=== PATIENT | female | born 1935 | race Asian ===

== ENCOUNTER 2016-05-25 12:29 | Day surgery (SDC) | payer OTHER ==
[2016-05-17 14:52] VITALS: BMI 27.2
--- NOTE | 2016-05-24 09:18 | HP ---
[facility]ellite [facility] - Chief Complaint Chief Complaint: right knee pain - Past Medical History Allergies/Adverse Reactions: Allergies Allergy/AdvReac Type Severity Reaction Status Date / Time No Known Drug Allergies Allergy Verified 05/17/16 14:23 - Current Medications Current Medications: Home Medications Medication Instructions Recorded Acetaminophen [Tylenol -] 1,000 mg PO HS PRN 05/17/16 Telmisartan/Amlodipine 1 each PO DAILY 05/17/16 [Telmisartan-Amlodipine 40-5 mg] Satellite Physical Exam - Physical Examination General Appearance: Well Nourished, Well Developed, Alert & Oriented x3 ENT: Clear Lung: Normal air movement Heart: Regular rate & rhythm Extremities: Other (right knee- + swelling, + ttp medially, decr rom, nvi xrays show severe medial djd) Neurological: Intact, Alert, Oriented Satellite Impression/Plan - Impression/Plan Impression: right knee medial djd Operative Procedure: right medial anna ukr Date to be Performed: 05/25/16
[2016-05-25] MEDS ORDERED: TRANEXAMIC ACID 1000 MG/10 ML VIAL IVPUSH ONE (12:49)
[2016-05-25] MEDS ORDERED: ROPIVICAINE 0.2%/MORPH PF/KETOROLAC - 51ML DISP.SYRINGE IA ONE (12:49)
[2016-05-25] MEDS ORDERED: CEFAZOLIN 1 GM/D5W 50 ML IVPB ONE (12:49)
[2016-05-25] MEDS: GABAPENTIN 300 MG CAPSULE (FP) PO ONE ×2 (13:15→17:39)
[2016-05-25] MEDS: CELECOXIB 200 MG CAPSULE PO ONE ×2 (13:15→17:39)
[2016-05-25] MEDS ORDERED: MIDAZOLAM HCL 2 MG/2 ML SINGLE DOSE VIAL ONE (14:13)
[2016-05-25] MEDS ORDERED: ROPIVACAINE HCL 0.5% 30ML VIAL ONE (14:13)
[2016-05-25] MEDS ORDERED: TRANEXAMIC ACID 1000 MG/10 ML VIAL ONE (15:10)
[2016-05-25] MEDS ORDERED: ceFAZolin SODIUM 1 GM VIAL ONE (15:10)
[2016-05-25] MEDS ORDERED: LIDOCAINE HCL/PF 2% SDV 5ML VIAL ONE (15:10)
[2016-05-25] MEDS ORDERED: PROPOFOL 20 ML ONE (16:06)
--- NOTE | 2016-05-25 16:21 | OP ---
Operative Note - Note: Operative Date: 05/25/16 Pre-Operative Diagnosis: right knee OA Operation: right knee medial Makoplasty, partial knee replacement, with Navigation Implants: Brian Femur 3, Tibia 3, Poly implant 9mm Surgeon: Aguila Bond Beverage Host: Garcia Hwang Anesthesiologist/DRYING ROOM SUPERVISOR: Jo Gao Anesthesia: General, Local Specimens Removed: bone Estimated Blood Loss (mls): 25 Blood Volume Replaced (mls): 0 Fluid Volume Replaced (mls): 700 Operative Report Dictated: Yes
[2016-05-25] MEDS ORDERED: ONDANSETRON 4 MG/2 ML VIAL IVPB PRN (16:31)
[2016-05-25] MEDS ORDERED: MAG HYDROX/AL HYDROX/SIMETH 30 ML UNIT-DOSE CUP PO PRN (16:31)
[2016-05-25] MEDS ORDERED: oxyCODONE HCL 5 MG TABLET PO PRN ×2 (16:40)
[2016-05-25] MEDS ORDERED: ONDANSETRON 4 MG/2 ML VIAL IVPUSH PRN (16:42)
[2016-05-25] MEDS ORDERED: LACTATED RINGERS SOLUTION 1,000 ML IV SCH (16:45)
[2016-05-25] MEDS: ACETAMINOPHEN 1000 MG/100 ML VIAL (NON FORMULARY) IVPB ONE ×2 (16:50→17:39)
[2016-05-25] MEDS ORDERED: ONDANSETRON 4 MG/2 ML VIAL ONE (17:19)
[2016-05-25] MEDS ORDERED: PROMETHAZINE HCL 25 MG/1 ML VIAL ONE (17:22)
[2016-05-25] MEDS ORDERED: PROMETHAZINE HCL 25 MG/1 ML VIAL IVPUSH ONE (19:00)
[2016-05-25] MEDS: CEFAZOLIN 1 GM/D5W 50 ML IVPB SCH (21:33)
[2016-05-25] MEDS: GABAPENTIN 300 MG CAPSULE (FP) PO SCH (21:33)
[2016-05-25] MEDS: oxyCODONE HCL 10 MG SUSTAINED ACTING TABLET PO SCH (21:34)
[2016-05-25] MEDS: SENNOSIDES/DOCUSATE COMBO (SENNA PLUS) TABLET (UD) PO SCH (21:35)
[2016-05-25 22:50] VITALS: TEMP 98.5
[2016-05-25] MEDS: ACETAMINOPHEN 325 MG TABLET (FP) PO SCH (23:05)
[2016-05-26] MEDS: ACETAMINOPHEN 325 MG TABLET (FP) PO SCH (04:23)
[2016-05-26] MEDS: CEFAZOLIN 1 GM/D5W 50 ML IVPB SCH (06:07)
[2016-05-26 06:23] VITALS: BP 102/46; PULSE 57
[2016-05-26] MEDS ORDERED: ASPIRIN 325 MG TABLET PO SCH (08:00)
--- NOTE | 2016-05-26 08:00 | PN ---
Progress Note (short form) - Note Progress Note: Ortho Pt seen and examined s/p right medial anna ukr pod #1 Selected Entries 05/26/16 06:00 Temperature 98.5 F Pulse Rate 57 L Respiratory 16 Rate Blood Pressure 102/46 dressing slight saturation proximally, not to borders, calf soft, nt rom 0-100, nvi a/p PT dvt ppx pain control d/c home today f/u in 1 week
--- NOTE | 2016-05-26 08:01 | DS ---
Physical Examination Vital Signs: Vital Signs Temperature 98.5 F 05/26/16 06:00 Pulse Rate 57 L 05/26/16 06:00 Respiratory Rate 16 05/26/16 06:00 Blood Pressure 102/46 05/26/16 06:00 O2 Sat by Pulse Oximetry (%) 93 L 05/26/16 06:22 Discharge Summary Reason For Visit: OSTEOARTHRITIS Procedures: Principal: s/p right medial anna ukr Hospital Course: admitted for elective right medial anna ukr, uneventful post-op, stable for d/c Condition: Good - Instructions Diet, Activity, Other Instructions: Post-op Instructions-Partial Knee Replacement Call the office for a follow-up appointment in 1 week - [phone] Aspirin 325mg daily for 6 weeks. Pain medication was sent into your pharmacy. Apply Graduated Compression Stockings (TEDs) to both lower extremities- remove daily for hygiene ONLY Apply Sequential Compression Device (SCDs) to both Lower extremities remove for PT and hygiene ONLY Apply cold packs to affected area for 15 minutes every 2 hours. Physical Therapist will come to your home for the first 5 days. You will be set up with outpatient PT at your first post-operative visit. Patient may ambulate as tolerated-encourage self care (at least every 2-3 hours while awake) with walker or cane Maintain Aquacel (waterproof) dressing to operative wound (will be removed by surgeon at first office visit) Shower with Aquacel dressing in place-if Aquacel integrity compromised, remove and apply dry sterile dressing and notify Orthopedist. DO NOT SHOWER unless Orthopedists approves without Aquacel dressing CONTACT THE OFFICE FOR ANY CHANGE IN YOUR CONDITION (for example-fever greater than 102 degrees,excessive bleeding from operative site, purulent drainage, severe swelling or pain) GO TO THE EMERGENCY ROOM IF THERE IS A MEDICAL EMERGENCY Knee Precautions: * Keep a rolled towel under affected heel while in bed or chair (to keep knee in extension) * Keep affected leg elevated except during mealtimes * DO NOT PLACE PILLOW UNDER AFFECTED KNEE * If you have any questions, please do not hesitate to call the office - . Referrals: Aguila Bond MD [Staff Physician] - Disposition: VNS/HOME HEALTH CARE - Home Medications Comprehensive Discharge Medication List: Ambulatory Orders Acetaminophen [Tylenol .Extra-Strength -] 1,000 mg PO HS PRN 05/17/16 Telmisartan/Amlodipine [Telmisartan-Amlodipine 40-5 mg] 1 each PO DAILY Aspirin [ASA -] 325 mg PO DAILY@0800 tablet 05/25/16 Oxycodone HCl/Acetaminophen [Percocet 5-325 mg Tablet -] 1 - 2 tab PO Q6H #50 tab MDD 8 05/25/16
[2016-05-26] MEDS: SENNOSIDES/DOCUSATE COMBO (SENNA PLUS) TABLET (UD) PO SCH (09:07)
[2016-05-26] MEDS: GABAPENTIN 300 MG CAPSULE (FP) PO SCH (09:08)
[2016-05-26] MEDS: oxyCODONE HCL 10 MG SUSTAINED ACTING TABLET PO SCH (09:08)
[2016-05-26] MEDS ORDERED: amLODIPine BESYLATE 5 MG TABLET (FP) PO SCH (10:00)
[2016-05-26] MEDS ORDERED: PANTOPRAZOLE 40 MG TABLET (FP) PO SCH (10:00)
[2016-05-26] MEDS ORDERED: VALSARTAN 160 MG TABLET (UD) PO SCH (10:00)
[2016-05-26] MEDS ORDERED: TELMISARTAN PO SCH (10:00)
[2016-05-26] MEDS ORDERED: AMLODIPINE PO SCH (10:00)
[2016-05-26] MEDS ORDERED: MULTIVITAMINS (DAILY MVI) TABLET (FP) PO SCH (10:00)
[2016-05-26] MEDS ORDERED: [UNRECOGNIZED DRUG - OTHER] PO SCH (10:00)
--- NOTE | 2016-05-27 13:28 | SPEC ---
DATE OF OPERATION: 05/25/2016 PREOPERATIVE DIAGNOSIS: Right knee medial compartment osteoarthritis. POSTOPERATIVE DIAGNOSIS: Right knee medial compartment osteoarthritis. PROCEDURE: Right knee medial MAKOplasty/partial knee replacement. SURGEON: Cedric Bruno MD SLEEP TECH: JOSÉ ANTONIO Wayne METHODS TIME ANALYST: Jo Gao CRNA ANESTHESIOLOGIST: Mtaeusz Dover MD, overseeing. ANESTHESIA: Spinal anesthesia. DRAINS: None. COMPLICATIONS: None. SPECIMENS: Bone. IMPLANTS: ABBI femoral component No. 3, tibial component No. 3, and tibial polyethylene tray 9 mm. BLOOD LOSS: 25 mL. BLOOD GIVEN: None. FLUID REPLACEMENT: 700 mL. DESCRIPTION OF PROCEDURE: The patient is 80-year-old female with preoperative diagnosis of severely painful and debilitating right knee medial compartment osteoarthritis. After understanding the potential risks, complications, alternatives and benefits of surgery versus nonsurgical treatment, the patient elected to undergo this procedure. The patient was brought to the operating room, peripheral IV placed, IV sedation given. One gram of IV Ancef was given. Regional blocks were performed. LMA anesthesia was induced. The right lower extremity was prepped and draped in a sterile fashion. Case was begun by making a medial incision about 4-inch in length. Subcutaneous hemostasis was achieved with the Bovie cautery. Dissection done down to the patella, the patella reticulum and medial patella retinacular incision was made with a Bovie cautery. Arthrotomy was performed. The proximal medial femur and the proximal medial tibial plateau were exposed. The femoral and tibial check points were placed one handbreadth above the patella and 2-inch more than one handbreadth below the patella. I put in four Elvira pins in the femoral and tibial arrays. We then used the Green probe to calibrate the medial malleolus and lateral malleolus, the femoral and tibial check points and then put the knee through a circular range of motion. Once this was done a Weitlaner retractor was placed into the incision, retracting the patella laterally and using the Blue check point we used 40 points of calibration on the femur and 40 points of calibration on the tibia. Once this was done we put the knee through a range of motion, eliminating the varus deformity, getting it to 3 degrees of varus from 9 and eliminating the external rotation deformity. We checked the knee at 0, 15, 30, 45, 60, 75, 90 and 120 degrees. We looked at the schematic diagram and the virtual MAKOplasty prosthesis. The femoral tracking was excellent. Soft tissue balance was excellent in all planes and the medial and lateral ligaments were under the appropriate amount of stress and we were able to achieve full extension, full flexion without too much laxity or tightness. We then locked in the virtual prosthesis and converted to the bony resection. The MAKOplasty robot was brought into place, additional calibration performed. Then we took out the femoral component cartilage and bony resection, made the allyson and did the same with the tibia. The area was copiously irrigated and washed out. Some marginal osteophytes were removed. A posterior femoral osteophyte was removed. A pituitary was used to remove soft tissue including what was remaining of the medial meniscus. The area was copiously irrigated and washed and overall looked quite good. We put in the trial components which were a No. 3 femur, No. 3 tibia and polyethylene tibial insert of 9 mm, put it through a range of motion and seemed to excellent in all planes, full extension, full flexion, excellent soft tissue balancing posteriorly, anteriorly, medially and laterally. The trial components were removed. The leg was elevated, the tourniquet applied. Thrombin soaked Gelfoam was placed over the exposed cancellous bone. One bag of Simplex cement was removed. The real components were opened. They were precoated with the Simplex at the appropriate time. The Gelfoam was removed. The area was dried with a lap pad and first the tibial tray was placed in the femoral component. Both were knocked into place with the primary impactor. The No. 8 polyethylene tibial tray was placed in. We removed excess cement and got excellent compression in both flexion and extension. Once the cement was dry we removed the tibial component, again cleaned up the knee as far as any excess cement or bony debris. Area was copiously irrigated and washed out, again checked. There was no other cement to be removed. There were no other osteophytes needed to be removed. There was excellent range of motion and no impingement anywhere. Area was irrigated and washed out again and the No. 8 polyethylene actual component placed, knocked into place with the impactor. Again flexion and extension medial and lateral laxity were checked which all seemed to quite good and closure was begun. The medial parapatellar retinacular incision was closed with No. 1 Tycron suture, 0 Vicryl suture used to close the deep dermal layer. Final skin approximation was done with a running subcuticular 3-0 V-lock suture. The area was then covered with Dermabond, the waterproof dressing. The Elvira pin holes were washed and closed with 3-0 nylon sutures. The area was then wrapped with an KALANI bandage. Tourniquet was taken down after a total time of 30minutes. Total operative time was 60 minutes. There were no complications during the case. The patient tolerated the procedure well and was brought to the regular recovery room in stable condition. CEDRIC BRUNO M.D. [id number]
== END 2016-05-26 11:40 | disposition home health service (06) ==
LOC: FASU 12:29 → FM/S 19:45 → FASU 05-26 11:40
PROVIDERS: ATTEND Orthopaedic Surgery
PROC: 8E0YXBZ Computer Assisted Procedure of Lower Extremity (ICD-10-PCS; 2016-05-25)
PROC: 8E0Y0CZ Robotic Assisted Procedure of Lower Extremity, Open Approach (ICD-10-PCS; 2016-05-25)
PROC: 0SRC0L9 Replacement of Right Knee Joint with Medial Unicondylar Synthetic Substitute, Cemented, Open Approach (ICD-10-PCS; principal; 2016-05-25 14:30)
DX: M17.11 Unilateral primary osteoarthritis, right knee (principal)
CPT/HCPCS: 20985; 27446; C1776; S2900; 73560-TC-RT; 94010; 94760; 97116-GP; 97162-PG

== ENCOUNTER 2023-05-23 11:34 | Observation (INO) | payer BC, OTHER ==
[2023-05-23 13:48] LABS: BASO % 0.5 % (0-2.0); EOS % 1.8 % (0-4.5); HEMATOCRIT 41.1 % (32.4-45.2); HEMOGLOBIN 13.7 GM/dL (10.7-15.3); LYMPH % 28.1 % (8-40); MCH 30.4 pg (25.7-33.7); MCHC 33.2 g/dl (32.0-36.0); MEAN CELL VOLUME 91.6 fl (80-96); MEAN PLT VOLUME 7.9 fl (7.5-11.1); NEUT % 62.6 % (42.8-82.8); PLATELET COUNT 205 10^3/uL (134-434); RBC 4.49 M/mm3 (3.60-5.2); RDW 14.1 % (11.6-15.6)
[2023-05-23] MEDS: ACETAMINOPHEN 1000 MG/100 ML BAG IVPB ONE (13:53)
[2023-05-23] MEDS ORDERED: ACETAMINOPHEN INJECTION 100 ML IVPB ONE (13:54)
[2023-05-23 13:55] LABS: INR 1.05 (0.83-1.09); PROTHROMBIN TIME (PATIENT) 12.2 SEC (9.7-13.0)
[2023-05-23 13:57] LABS: ACTIVATED PTT 29.6 SECONDS (25.2-36.5)
[2023-05-23 14:08] LABS: CALCIUM 9.1 mg/dL (8.5-10.1)
[2023-05-23 14:09] LABS: ALBUMIN 3.8 g/dl (3.4-5.0); BLOOD UREA NITROGEN 22.7 mg/dL (7-18); MAGNESIUM 2.3 mg/dL (1.8-2.4)
[2023-05-23 14:12] LABS: CREATININE 0.9 mg/dL (0.55-1.3)
[2023-05-23 14:13] LABS: BILIRUBIN,TOTAL 0.5 mg/dL (0.2-1); TOT PROT 7.1 g/dl (6.4-8.2)
[2023-05-23] MEDS ORDERED: DIPHTH,PERTUSS(ACELL),TET 0.5 ML DISP.SYRIN IM ONE (16:18)
[2023-05-23] MEDS ORDERED: hydrALAZINE HCL 20 MG/ML VIAL IVPUSH PRN (18:00)
[2023-05-23] MEDS ORDERED: MECLIZINE HCL 12.5 MG TABLET PO PRN (18:01)
[2023-05-23] MEDS ORDERED: hydrALAZINE HCL 20 MG/ML VIAL ONE (18:07)
[2023-05-23] MEDS: DIPHTH,PERTUSS(ACELL),TET 0.5 ML DISP.SYRIN IM ONE (18:17)
[2023-05-23] MEDS ORDERED: NIFEdipine E.R 60 MG TABLET PO ONE (18:32)
[2023-05-23] MEDS: NIFEdipine E.R 60 MG TABLET PO SCH (18:38)
[2023-05-23] MEDS: hydrALAZINE HCL 20 MG/ML VIAL IVPUSH ONE (18:38)
[2023-05-23] MEDS: LIDOCAINE 5% TOPICAL PATCH TP ONE (21:57)
[2023-05-23] MEDS ORDERED: LIDOCAINE 4% PATCH TP ONE (22:09)
[2023-05-23] MEDS: LIDOCAINE PATCH REMOVAL MC SCH (23:33)
[2023-05-23 23:59] VITALS: BMI 27.6
[2023-05-24] MEDS: METOPROLOL TARTRATE 5 MG/5 ML VIAL IVPUSH ONE (01:59)
[2023-05-24] MEDS: APIXABAN 5 MG TABLET PO SCH (02:07)
[2023-05-24] MEDS: METOPROLOL TARTRATE 25 MG TABLET (FP) PO ONE (02:17)
[2023-05-24] MEDS: dilTIAZem HCL 50 MG/10 ML - 10 ML VIAL IVPUSH ONE (02:39)
[2023-05-24 06:58] LABS: BASO % 0.3 % (0-2.0); EOS % 1.6 % (0-4.5); HEMATOCRIT 41.7 % (32.4-45.2); LYMPH % 25.6 % (8-40); MCH 30.5 pg (25.7-33.7); MCHC 33.7 g/dl (32.0-36.0); MEAN CELL VOLUME 90.7 fl (80-96); MEAN PLT VOLUME 8.3 fl (7.5-11.1); MONO % 7.7 % (3.8-10.2); NEUT % 64.8 % (42.8-82.8); PLATELET COUNT 205 10^3/uL (134-434); RDW 13.9 % (11.6-15.6)
[2023-05-24 07:09] LABS: POTASSIUM 3.7 mmol/L (3.5-5.1)
[2023-05-24 07:10] LABS: CALCIUM 9.3 mg/dL (8.5-10.1)
[2023-05-24 07:11] LABS: BLOOD UREA NITROGEN 20.3 mg/dL (7-18)
[2023-05-24 07:14] LABS: CREATININE 0.7 mg/dL (0.55-1.3)
[2023-05-24] MEDS: LIDOCAINE PATCH REMOVAL MC ONE (09:55)
[2023-05-24] MEDS ORDERED: AMLODIPINE PO SCH (10:00)
[2023-05-24] MEDS ORDERED: TELMISARTAN PO SCH (10:00)
[2023-05-24] MEDS ORDERED: [UNRECOGNIZED DRUG - OTHER] PO SCH (10:00)
[2023-05-24] MEDS: METOPROLOL TARTRATE 25 MG TABLET (FP) PO SCH (12:33)
[2023-05-24] MEDS: ACETAMINOPHEN 500 MG TABLET (FP) PO PRN (16:36)
[2023-05-25 07:20] LABS: BASO % 0.3 % (0-2.0); HEMATOCRIT 43.2 % (32.4-45.2); HEMOGLOBIN 14.6 GM/dL (10.7-15.3); LYMPH % 35.7 % (8-40); MCH 30.7 pg (25.7-33.7); MCHC 33.7 g/dl (32.0-36.0); MEAN CELL VOLUME 90.9 fl (80-96); MEAN PLT VOLUME 8.2 fl (7.5-11.1); PLATELET COUNT 200 10^3/uL (134-434); RBC 4.75 M/mm3 (3.60-5.2); RDW 13.7 % (11.6-15.6); WHITE BLOOD COUNT 6.1 K/mm3 (4.0-10.0)
[2023-05-25 07:36] LABS: POTASSIUM 4.2 mmol/L (3.5-5.1)
[2023-05-25 07:41] LABS: CALCIUM 9.2 mg/dL (8.5-10.1)
[2023-05-25 07:42] LABS: ALBUMIN 3.7 g/dl (3.4-5.0); BLOOD UREA NITROGEN 19.1 mg/dL (7-18); MAGNESIUM 2.2 mg/dL (1.8-2.4)
[2023-05-25 07:44] LABS: CREATININE 0.7 mg/dL (0.55-1.3); PHOSPHOROUS 3.6 mg/dL (2.5-4.9)
[2023-05-25 07:46] LABS: BILIRUBIN,TOTAL 0.7 mg/dL (0.2-1); TOT PROT 7.6 g/dl (6.4-8.2)
[2023-05-25] MEDS: LOSARTAN POTASSIUM 50 MG TABLET PO SCH (09:01)
[2023-05-25] MEDS: MECLIZINE HCL 12.5 MG TABLET PO SCH ×2 (10:16→10:33)
[2023-05-25] MEDS: ACETAMINOPHEN 500 MG TABLET (FP) PO SCH (10:32)
[2023-05-26 07:21] LABS: HEMATOCRIT 43.7 % (32.4-45.2); HEMOGLOBIN 14.6 GM/dL (10.7-15.3); MCH 30.7 pg (25.7-33.7); MCHC 33.4 g/dl (32.0-36.0); MEAN CELL VOLUME 91.8 fl (80-96); MEAN PLT VOLUME 8.4 fl (7.5-11.1); PLATELET COUNT 203 10^3/uL (134-434); RBC 4.77 M/mm3 (3.60-5.2); WHITE BLOOD COUNT 6.1 K/mm3 (4.0-10.0)
[2023-05-26 07:41] LABS: POTASSIUM 5.2 mmol/L (3.5-5.1)
[2023-05-26 07:47] LABS: ALBUMIN 3.6 g/dl (3.4-5.0); BLOOD UREA NITROGEN 24.9 mg/dL (7-18); CALCIUM 9.6 mg/dL (8.5-10.1); MAGNESIUM 2.4 mg/dL (1.8-2.4)
[2023-05-26 07:50] LABS: CREATININE 0.8 mg/dL (0.55-1.3); PHOSPHOROUS 3.8 mg/dL (2.5-4.9)
[2023-05-26 07:51] LABS: BILIRUBIN,TOTAL 0.7 mg/dL (0.2-1)
[2023-05-26] MEDS: amLODIPine BESYLATE 5 MG TABLET (FP) PO SCH ×2 (09:10→09:40)
[2023-05-26] MEDS: ACETAMINOPHEN 325 MG TABLET (FP) PO SCH ×2 (09:25→21:34)
[2023-05-26] MEDS: ACETAMINOPHEN 325 MG TABLET (FP) PO ONE (16:32)
[2023-05-26 21:33] VITALS: RESP 18
[2023-05-27 07:22] LABS: HEMATOCRIT 41.9 % (32.4-45.2); HEMOGLOBIN 14.1 GM/dL (10.7-15.3); MCH 30.9 pg (25.7-33.7); MCHC 33.8 g/dl (32.0-36.0); MEAN CELL VOLUME 91.5 fl (80-96); MEAN PLT VOLUME 8.1 fl (7.5-11.1); PLATELET COUNT 190 10^3/uL (134-434); RBC 4.57 M/mm3 (3.60-5.2); RDW 13.6 % (11.6-15.6); WHITE BLOOD COUNT 5.6 K/mm3 (4.0-10.0)
[2023-05-27 08:13] LABS: POTASSIUM 3.8 mmol/L (3.5-5.1)
[2023-05-27 08:29] LABS: CALCIUM 8.7 mg/dL (8.5-10.1)
[2023-05-27 08:30] LABS: ALBUMIN 3.6 g/dl (3.4-5.0); BLOOD UREA NITROGEN 18.6 mg/dL (7-18)
[2023-05-27 08:31] LABS: MAGNESIUM 2.4 mg/dL (1.8-2.4)
[2023-05-27 08:33] LABS: CREATININE 0.6 mg/dL (0.55-1.3); PHOSPHOROUS 3.6 mg/dL (2.5-4.9)
[2023-05-27 08:34] LABS: BILIRUBIN,TOTAL 0.7 mg/dL (0.2-1); TOT PROT 7.2 g/dl (6.4-8.2)
[2023-05-27] MEDS: LOSARTAN POTASSIUM 50 MG TABLET PO SCH (09:01)
[2023-05-27] MEDS: amLODIPine BESYLATE 10 MG TABLET (FP) PO SCH (09:05)
[2023-05-27] MEDS ORDERED: LOSARTAN POTASSIUM 50 MG TABLET PO ONE (12:30)
[2023-05-27] MEDS: LOSARTAN POTASSIUM 50 MG TABLET PO ONE (15:20)
[2023-05-28 08:19] LABS: HEMATOCRIT 43.4 % (32.4-45.2); HEMOGLOBIN 14.5 GM/dL (10.7-15.3); MCH 30.7 pg (25.7-33.7); MCHC 33.5 g/dl (32.0-36.0); MEAN CELL VOLUME 91.5 fl (80-96); MEAN PLT VOLUME 8.2 fl (7.5-11.1); PLATELET COUNT 197 10^3/uL (134-434); RBC 4.74 M/mm3 (3.60-5.2); WHITE BLOOD COUNT 4.9 K/mm3 (4.0-10.0)
[2023-05-28 08:28] LABS: POTASSIUM 3.9 mmol/L (3.5-5.1)
[2023-05-28 08:42] LABS: CALCIUM 9.1 mg/dL (8.5-10.1)
[2023-05-28 08:43] LABS: ALBUMIN 3.6 g/dl (3.4-5.0); BLOOD UREA NITROGEN 20.2 mg/dL (7-18); MAGNESIUM 2.4 mg/dL (1.8-2.4)
[2023-05-28 08:46] LABS: CREATININE 0.7 mg/dL (0.55-1.3); PHOSPHOROUS 3.6 mg/dL (2.5-4.9)
[2023-05-28 08:47] LABS: TOT PROT 7.2 g/dl (6.4-8.2)
[2023-05-28] MEDS ORDERED: LOSARTAN POTASSIUM 50 MG TABLET PO SCH (10:00)
[2023-05-28] MEDS: LOSARTAN POTASSIUM 50 MG TABLET PO SCH (10:16)
[2023-05-28 11:20] VITALS: TEMP 97.6
[2023-05-28] MEDS: APIXABAN 5 MG TABLET PO SCH (14:35)
[2023-05-28 15:32] VITALS: BP 123/78; PULSE 72
== END 2023-05-28 03:15 | disposition home or self-care (01) ==
LOC: JER 11:34 → JERBED 17:34 → J4W 23:51
PROVIDERS: ADMIT Internal Medicine; ATTEND Internal Medicine
PROC: 3E033NZ Introduction of Analgesics, Hypnotics, Sedatives into Peripheral Vein, Percutaneous Approach (ICD-10-PCS; principal; 2023-05-23)
PROC: 3E023GC Introduction of Other Therapeutic Substance into Muscle, Percutaneous Approach (ICD-10-PCS; 2023-05-23)
PROC: 3E0234Z Introduction of Serum, Toxoid and Vaccine into Muscle, Percutaneous Approach (ICD-10-PCS; 2023-05-23)
PROC: 3E033GC Introduction of Other Therapeutic Substance into Peripheral Vein, Percutaneous Approach (ICD-10-PCS; 2023-05-23)
DX: I16.0 Hypertensive urgency (principal); I48.91 Unspecified atrial fibrillation; R42 Dizziness and giddiness; R77.8 Other specified abnormalities of plasma proteins; W18.39XA Other fall on same level, initial encounter; Y93.89 Activity, other specified; Y92.410 Unspecified street and highway as the place of occurrence of the external cause; Z23 Encounter for immunization
CPT/HCPCS: 0241U-QW; 36415; 70450-TC; 70553-TC; 71045-TC-FY; 72125-TC; 72170-TC-FY; 80048; 80053; 83735; 84100; 84443; 84484; 85025; 85027; 85610; 85730; 86850; 86900; 86901; 90471; 90715; 93005; 93010; 93306-TC; 96372; 96374; 96375; 96376; 97116-GP; 97162-GP; 99285-25; G0378; J0131

== ENCOUNTER 2025-01-21 11:01 | Emergency (ER) | payer OTHER ==
[2025-01-21] MEDS ORDERED: DIPHTH,PERTUSS(ACELL),TET 0.5 ML DISP.SYRIN IM ONE (11:58)
[2025-01-21 12:01] VITALS: BP 161/114; PULSE 84; RESP 18; TEMP 97.4; BMI 20.9
[2025-01-21] MEDS: DIPHTH,PERTUSS(ACELL),TET 0.5 ML DISP.SYRIN IM ONE (12:25)
[2025-01-21 12:40] LABS: MCHC 31.3 g/dl (32.2-35.5); MEAN CELL VOLUME 90.1 fl (79.4-94.8); MEAN PLT VOLUME 9.9 fl (9.4-12.3); RDW 14.5 % (12.5-17.0)
[2025-01-21 12:49] LABS: URINE APPEARANCE CLEAR; URINE BILIRUBIN NEGATIVE (NEGATIVE); URINE COLOR ORANGE; URINE GLUCOSE (UA) NEGATIVE (NEGATIVE); URINE KETONE NEGATIVE (NEGATIVE); URINE LEUK ESTERASE 2+ (NEGATIVE); URINE NITRITE NEGATIVE (NEGATIVE); URINE PROTEIN 2+ (NEGATIVE); URINE UROBILINOGEN 0.2 mg/dL (0.2-1.0)
[2025-01-21 12:52] LABS: INR 1.05 (0.83-1.09); PROTHROMBIN TIME (PATIENT) 11.4 SEC (9.7-13.0)
[2025-01-21 12:55] LABS: ACTIVATED PTT 28.3 SECONDS (25.2-36.5)
[2025-01-21 12:56] LABS: EPI CELLS 35.6 /uL (0-25.1); HYALINE CASTS 0.63 /uL (0-3.1); URINE BACTERIA 140.6 /uL (0-1359); URINE RBC 52.6 /uL (0-23.9); URINE WBC 48.1 /uL (0-25.8)
[2025-01-21 13:23] LABS: GLUCOSE,RANDOM 100.0 mg/dL (74-106)
[2025-01-21 13:24] LABS: TOT PROT 7.5 g/dl (6.4-8.2)
[2025-01-21 13:25] LABS: CO2 23.0 mmol/L (21-32)
[2025-01-21 13:26] LABS: ALK PHOS 74.0 U/L (40-150)
[2025-01-21 13:29] LABS: CREATININE 0.74 mg/dL (0.55-1.3); SGOT/AST 45.0 U/L (5-34); SGPT/ALT 31.0 U/L (0-55)
[2025-01-21 13:49] LABS: HCV DIAGNOSTIC IN-HOUSE W/RFLX NON-REACTIVE (NONREACTIVE)
[2025-01-21 13:50] LABS: HIV INTERPRETATION NEGATIVE (NEGATIVE)
== END 2025-01-21 16:04 | disposition home or self-care (01) ==
LOC: JER 11:01
PROC: 0HQ1XZZ Repair Face Skin, External Approach (ICD-10-PCS; principal; 2025-01-21)
PROC: 3E0234Z Introduction of Serum, Toxoid and Vaccine into Muscle, Percutaneous Approach (ICD-10-PCS; 2025-01-21)
DX: S01.511A Laceration without foreign body of lip, initial encounter (principal); Z23 Encounter for immunization; W01.10XA Fall on same level from slipping, tripping and stumbling with subsequent striking against unspecified object, initial encounter
CPT/HCPCS: 36415; 70450-TC; 70486-TC; 71045-TC-FY; 72125-TC; 72192-TC; 80053; 81003; 82962; 84484; 85025; 85610; 85730; 86803; 87086; 87389; 90715; 93005; 93010; 99284-25